=== PATIENT | female | born 1980 | race Two or more races ===

== ENCOUNTER 2022-06-02 15:08 | Emergency (ER) | payer MEDICAID ==
[~2022-06-02] VITALS: Ht 154.9 cm; Wt 65.3 kg
[2022-06-02 15:16] VITALS: BP 129/97
--- NOTE | 2022-06-02 15:22 | NUR ---
Patient ambulated to bed 09 steady/even gait.
--- NOTE | 2022-06-02 15:25 | NUR ---
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 Patient A&Ox4, ambulatory, states 2 days of numbness/tingling that begins to R side of neck, radiating to hands and down to ankles. Patient reports 8/10, cramping/intermittent, radiating pain. Pt states seen by PCP 1 week ago, prescribed Baclofen without relief. Pt states minimal to left side, primarily on Right side. States symptoms initially occurred during evening time, now persistent throughout the day. Denies blurry vision, headache, n/v/d. Bed locked in lowest position, side rails x 1. PMH/Sx/Meds: Baclofen NKDA
--- NOTE | 2022-06-02 15:47 | NUR ---
Dr. Lancaster evaluating pt at bedside
[2022-06-02] MEDS ORDERED: NAPR-54 PO (17:28)
[2022-06-02] MEDS ORDERED: KETOROLAC 60 MG/2 ML VIAL IM ONE (17:30)
[2022-06-02 17:46] VITALS: BP 120/93
--- NOTE | 2022-06-02 18:00 | NUR ---
Patient discharged with v/s stable. Written and verbal after care instructions given and explained. Patient alert, oriented and verbalized understanding of instructions. Ambulatory with steady gait. All questions addressed prior to discharge. ID band removed. Patient advised to follow up with PMD. Rx of Naproxen given. Patient educated on indication of medication including possible reaction and side effects. Opportunity to ask questions provided and answered. Copies of CT given to patient.
== END 2022-06-02 18:00 | disposition home or self-care (01) ==
LOC: MED 15:08
DX: S13.9XXA Sprain of joints and ligaments of unspecified parts of neck, initial encounter (principal); X58.XXXA Exposure to other specified factors, initial encounter; Y93.89 Activity, other specified; Y92.89 Other specified places as the place of occurrence of the external cause; Y99.8 Other external cause status
CPT/HCPCS: 72125; 81025; 96372; 99284; J1885